=== PATIENT | male | born 1955 | race Caucasian/White ===

== ENCOUNTER 2018-10-18 04:24 | Emergency (ER) | payer BC, MEDICARE ==
[2018-10-18 04:40] VITALS: BP_DIAS 209
--- NOTE | 2018-10-18 04:48 | ER Report ---
History and Physical Time Seen By MD: 04:21 HPI/VLADISLAV CHIEF COMPLAINT: Cardiopulmonary arrest HISTORY OF PRESENT ILLNESS: This is a 63-year-old female brought in by EMS with full code in progress. They were called by the family after they found the patient with an abnormal snoring sound and then not breathing. Family started CPR right away. EMS arrived about 30 minutes later. Brought him to the ER we continued CPR. EMS gave 4 cycles of epinephrine, had 2 intraosseous lines placed with fluids running on one, the Mario device providing compressions, and a Azam airway securing the patient's airway, with good ventilations with this airway. The patient was transferred to our monitor. He had been asystole during transport. Mottling throughout the body, cold, and pupils were fixed and dilated. REVIEW OF SYSTEMS: Unable to obtain Allergies: Coded Allergies: No Known Drug Allergies (Unverified , 10/18/18) Home Meds No Active Prescriptions or Reported Meds Reviewed Nurses Notes: Yes Constitutional Vital Sign - Last 24 Hours 10/18/18 10/18/18 10/18/18 10/18/18 04:24 04:25 04:25 04:27 Pulse ??? B/P (MAP) +++/47 (-152) +++/45 (-153) Pulse Ox 79 O2 Flow Rate 15.0 10/18/18 10/18/18 10/18/18 10/18/18 04:29 04:31 04:34 04:36 B/P (MAP) 167/56 (93) +++/43 (-154) +++/37 (-158) +++/47 (-152) 10/18/18 10/18/18 10/18/18 04:38 04:40 07:20 Resp 14 B/P (MAP) +++/48 (-151) +++/209 (-43) Physical Exam General Appearance: Patient is comatose, GCS zero. No spontaneous respira tions. No pulse. No spontaneous movements. Eyes: Pupils are fixed and dilated ENT: Azam airway in the mouth, dry mucous membranes. Cyanosis around the face. Neck: Trachea midline. Respiratory: Bag valve ventilation through the Azam airway, easy respirations, none spontaneous. Cardiovascular: No pulse. On initial pulse check is pulseless electrical activity. Cyanosis in the extremities Gastrointestinal: Abdomen is soft, no distention Genitourinary: Urinary catheter placed during the code. Neurological: No movements or other signs of neurologic activity Skin: Cool and cyanotic throughout Musculoskeletal: No evidence of injuries DIFFERENTIAL DIAGNOSIS: After history and physical exam, differential diagnosis was considered for cardiopulmonary arrest of uncertain etiology, ongoing attempt at cardiopulmonary resuscitation. Medical Decision Making Data Points Result Diagram: 10/18/18 0428 10/18/18 0428 Laboratory Hematology Test 10/18/18 04:28 Red Blood Count 4.25 M/uL (4.00-5.60) Mean Corpuscular Volume 95.6 fL (80.0-96.0) Mean Corpuscular Hemoglobin 30.0 pg (26.0-33.0) Mean Corpuscular Hemoglobin Concent 31.4 g/dL (32.0-36.0) Red Cell Distribution Width 14.8 % (11.5-14.5) Mean Platelet Volume 9.2 fL (7.2-11.1) Neutrophils (%) (Auto) 49.0 % (39.4-72.5) Lymphocytes (%) (Auto) 37.6 % (17.6-49.6) Monocytes (%) (Auto) 12.6 % (4.1-12.4) Eosinophils (%) (Auto) 0.4 % (0.4-6.7) Basophils (%) (Auto) 0.4 % (0.3-1.4) Nucleated RBC Relative Count (auto) 0.3 /100WBC Neutrophils # (Auto) 5.2 K/uL (2.0-7.4) Lymphocytes # (Auto) 4.0 K/uL (1.3-3.6) Monocytes # (Auto) 1.3 K/uL (0.3-1.0) Eosinophils # (Auto) 0.0 K/uL (0.0-0.5) Basophils # (Auto) 0.0 K/uL (0.0-0.1) Nucleated RBC Absolute Count (auto) 0.03 K/uL Sodium Level 140 mmol/L (137-145) Potassium Level 5.0 mmol/L (3.5-5.0) Chloride Level 103 mmol/L (98-107) Carbon Dioxide Level 18 mmol/L (22-30) Blood Urea Nitrogen 20 mg/dl (9-21) Creatinine 1.20 mg/dl (0.66-1.25) Glomerular Filtration Rate Calc > 60.0 Random Glucose 259 mg/dl (75-110) Lactate 14.1 mmol/L (0.7-2.1) Calcium Level 9.3 mg/dl (8.4-10.2) Total Bilirubin 0.6 mg/dl (0.2-1.3) Aspartate Amino Transf (AST/SGOT) 47 U/L (0-35) Alanine Aminotransferase (ALT/SGPT) 45 U/L (0-56) Alkaline Phosphatase 80 U/L (0-126) Troponin I 0.037 ng/ml Total Protein 5.5 g/dl (6.3-8.2) Albumin 3.4 g/dl (3.5-5.0) Chemistry Test 10/18/18 04:28 White Blood Count 10.7 k/uL (4.5-11.0) Red Blood Count 4.25 M/uL (4.00-5.60) Hemoglobin 12.8 g/dL (14.0-18.0) Hematocrit 40.6 % (42.0-52.0) Mean Corpuscular Volume 95.6 fL (80.0-96.0) Mean Corpuscular Hemoglobin 30.0 pg (26.0-33.0) Mean Corpuscular Hemoglobin Concent 31.4 g/dL (32.0-36.0) Red Cell Distribution Width 14.8 % (11.5-14.5) Platelet Count 89 K/uL (150-450) Mean Platelet Volume 9.2 fL (7.2-11.1) Neutrophils (%) (Auto) 49.0 % (39.4-72.5) Lymphocytes (%) (Auto) 37.6 % (17.6-49.6) Monocytes (%) (Auto) 12.6 % (4.1-12.4) Eosinophils (%) (Auto) 0.4 % (0.4-6.7) Basophils (%) (Auto) 0.4 % (0.3-1.4) Nucleated RBC Relative Count (auto) 0.3 /100WBC Neutrophils # (Auto) 5.2 K/uL (2.0-7.4) Lymphocytes # (Auto) 4.0 K/uL (1.3-3.6) Monocytes # (Auto) 1.3 K/uL (0.3-1.0) Eosinophils # (Auto) 0.0 K/uL (0.0-0.5) Basophils # (Auto) 0.0 K/uL (0.0-0.1) Nucleated RBC Absolute Count (auto) 0.03 K/uL Glomerular Filtration Rate Calc > 60.0 Lactate 14.1 mmol/L (0.7-2.1) Calcium Level 9.3 mg/dl (8.4-10.2) Total Bilirubin 0.6 mg/dl (0.2-1.3) Aspartate Amino Transf (AST/SGOT) 47 U/L (0-35) Alanine Aminotransferase (ALT/SGPT) 45 U/L (0-56) Alkaline Phosphatase 80 U/L (0-126) Troponin I 0.037 ng/ml Total Protein 5.5 g/dl (6.3-8.2) Albumin 3.4 g/dl (3.5-5.0) ED Course/Re-evaluation ED Course The patient had been down for about 40 minutes prior to arrival in the ER. We performed multiple cycles of CPR with the Mario device providing compressions. Several doses of epinephrine, see nursing notes for specifics, as well as one dose of bicarbonate were given through the intraosseous lines. Patient had both pulseless electrical activity and then later asystole. After several cycles with no sign of recovery, the code was called. See nurse's notes for details. The family arrived in the ER and I was able to spend a little bit of time talking to the patient's and then brought her to the patient's bedside. Decision to Disposition Date: Oct 18, 2018 Decision to Disposition Time: 04:41 Depart Departure Latest Vital Signs Vital Signs Date Time Temp Pulse Resp B/P (MAP) Pulse Ox O2 Delivery O2 Flow Rate FiO2 10/18/18 07:20 14 10/18/18 04:40 +++/209 (-43) 10/18/18 04:25 15.0 10/18/18 04:24 ??? 79 Impression: Primary Impression: Cardiopulmonary arrest Condition: Disposition: New Scripts No Active Prescriptions or Reported Meds KWADWO GUSTAFSON MD Oct 18, 2018 04:48
[2018-10-18 04:49] LABS: PLATELET COUNT, AUTOMATED 89 K/uL (150-450)
[2018-10-18] MEDS ORDERED: EMS NS 0.9%(*) 1000 ML BAG 1,000 ML IV ONE (07:45)
[2018-10-18] MEDS ORDERED: NS(*) 0.9% 1000 ML BAG 1,000 ML IV ONE (07:45)
== END 2018-10-18 04:50 | disposition expired ==
LOC: ER 04:46
DX: I46.9 Cardiac arrest, cause unspecified (principal)
CPT/HCPCS: 36415; 83605; 84484; 85025; 99285; C1758; J0171; J7030; 82040; 82247; 82310; 82374; 82435; 82565; 82947; 84075; 84132; 84155; 84295; 84450; 84460; 84520

== ENCOUNTER → 2018-10-18 | Outpatient (CLI) | payer BC, MEDICARE | LOC: AMB 03:49 | PROVIDERS: ATTEND Nurse Practitioner | DX: I46.9 Cardiac arrest, cause unspecified (principal); R06.81 Apnea, not elsewhere classified | CPT/HCPCS: A0425; A0433 ==